=== PATIENT | female | born 1975 | race Caucasian/White ===

== ENCOUNTER 2020-05-12 02:19 | Emergency (ER) | payer BC, MEDICAID ==
[~2020-05-12] VITALS: Ht 165.1 cm; Wt 61.2 kg
[2020-05-12 02:35] VITALS: BP 116/53
[2020-05-12] MEDS ORDERED: diphenhdrAMINE HCL 25 MG CAP PO ONE (04:45)
== END 2020-05-12 05:50 | disposition left against medical advice (07) ==
LOC: ER 02:25
DX: G47.9 Sleep disorder, unspecified (principal); Z76.0 Encounter for issue of repeat prescription; Z76.5 Malingerer [conscious simulation]